=== PATIENT | female | born 1985 | race Caucasian/White ===

== ENCOUNTER 2019-12-10 14:40 | Emergency (ER) | payer BC, SELFPAY ==
--- NOTE | ~2019-12-10 | CT_ITS ---
EXAMINATION: CT lumbar spine w con DATE: 12/10/2019 19:14 INDICATION: Low back pain post recent spinal injection TECHNIQUE: Computed tomography (CT) of the lumbar spine was performed with 100 mL Omnipaque-350 intra venous contrast. Automated exposure control and iterative reconstruction technique were employed. The dose-length product was 908.37 mGy-cm. COMPARISON: Lumbar spine MR dated 08/03/2019 FINDINGS: Again seen is 3 mm retrolisthesis L4 on L5 and L5 on S1. Moderate disc height loss with vacuum phenom joseph at both levels. The more cephalad disc heights are normal. Vertebral body heights are normal. No fracture. Disc bulges at L4-L5 and L5-S1 resulting in mild central canal stenosis. Tiny foci of gas a t the posterior aspect of the right posterior S1 neural foramen and more posteriorly along the deep p araspinal musculature cephalad and caudal to the left-sided lamina of L5 and S1. Paraspinal soft tiss ues are otherwise unremarkable with no abscess, other abnormal fluid collections or abnormally enhanc ing lesions. No gas within the central canal. 2.0 cm left ovarian cyst/follicle. IMPRESSION: 1. A few tiny foci of gas along the paraspinal soft tissues at the posterior aspect of the lumbosacra l junction on both the left and right likely related to reported recent spinal injection. No gas abno rmal fluid collections or gas within the central canal. 2. Mild to moderate lower lumbar spondylosis. Reviewed, dictated and finalized at location A. NTRY WEAPONS OFFICER IMPRESSION: 1. A few tiny foci of gas along the paraspinal soft tissues at the posterior as pect of the lumbosacral junction on both the left and right likely related to r eported recent spinal injection. No gas abnormal fluid collections or gas withi n the central canal. 2. Mild to moderate lower lumbar spondylosis.
[2019-12-10 15:23] VITALS: BP 153/81; PULSE 100; RESP 18; TEMP 37; O2SAT 99
--- NOTE | 2019-12-10 15:32 | ED.BACK ---
HPI - Back Pain/Injury General Chief Complaint: Back Pain/Injury Time Seen by Provider: 12/10/19 15:13 Source: patient Mode of arrival: ambulatory Limitations: no limitations History of Present Illness HPI Narrative: This is a 34 year old female that presents to the ER for low back pain since yesterday. Reports she has history of lumbar disc disease and is receiving spinal injections. Reports she had one yesterday and since her pain has been worse. Reports the pain is radiating down her left leg. Denies fever, saddle anesthesia, or bowel/bladder incontinence. Related Data Home Medications Medication Instructions Recorded Confirmed fluoxetine 10 mg tablet 10 mg PO DAILY 10/15/19 norethindrone 1.5 mg-ethinyl 1 tablet PO DAILY 10/15/19 estradiol 30 mcg(21)/iron 75 mg(7) tablet Allergies Allergy/AdvReac Type Severity Reaction Status Date / Time No Known Allergies Allergy Verified 05/19/15 14:46 Review of Systems Review of Systems: Narrative: CONSTITUTIONAL: Denies fever MUSCULOSKELETAL: Reports back pain, joint pain, and myalgia. NEUROLOGIC: Denies numbness, or weakness. All systems reviewed & are unremarkable except as noted in HPI and below PMFSH Past Medical History Medical History (Updated 12/10/19 @ 19:56 by eMl Jurado PA-C) History of depression Family History Family History (Updated 05/30/17 @ 09:08 by DOCTOR UNKNOWN) Mother Family history of hypercholesterolemia Grandparent Family history of malignant neoplasm Social History Social History (Updated 10/15/19 @ 08:25 by Orly Adhikari) Smoking status: Current every day smoker Tobacco type: cigarettes Alcohol intake: current Substance use: never Substance use type: does not use Gender identity (if verbalized by the patient): Female Exam Narrative: Exam Narrative: GENERAL: Well-appearing, well-nourished, and in no acute distress. HEAD: Normocephalic, atraumatic. EYES: EOMI. CHEST: Clear to auscultation. No respiratory distress. No wheezes rales or rhonchi HEART: Regular rate and rhythm. No murmur heard. Normal peripheral pulses. BACK: No midline spinal tenderness, erythema or warmth EXTREMITIES: Normal range of motion. No edema. Strength equal in bilateral lower extremities (5/5). Normal patellar reflexes bilaterally SKIN: Warm, dry, no rash. NEURO: No focal deficits. Alert and oriented x3. PSYCH: Normal mood and affect Course Vital Signs Vital signs: Vital Signs Temperature 98.6 F 12/10/19 15:23 Pulse Rate 100 12/10/19 15:23 Respiratory Rate 18 12/10/19 15:23 Blood Pressure 153/81 H 12/10/19 15:23 Pulse Oximetry 99 12/10/19 15:23 Temperature 98.6 F 12/10/19 15:23 Pulse Rate 100 12/10/19 15:23 Respiratory Rate 18 12/10/19 15:23 Blood Pressure 153/81 H 12/10/19 15:23 Pulse Oximetry 99 12/10/19 15:23 MDM - Back Pain/Injury MDM Narrative Medical decision making narrative: Patient presents to the emergency department for increasing lower back pain after epidural injection for disc disease yesterday. No midline spinal tenderness. Patient is neurologically intact. She is afebrile and nontoxic-appearing. Mild leukocytosis on CBC to 13.2. Inflammatory markers are not elevated. CT abdomen pelvis with a few tiny foci of gas along the paraspinal soft tissues, consistent with recent spinal injection. No abnormal fluid collections or gas within the central canal. Also shows mild to moderate lumbar spondylosis. Patient was updated on case findings. She reports improvement with Toradol and Valium. She is to follow-up with her statuary painter. She was given warnings to return to the ER Lab Data Attestation: I reviewed the patient's lab results. Result diagrams: 12/10/19 15:56 12/10/19 15:56 Labs: Lab Results 12/10/19 12/10/19 12/10/19 Range/Units 15:56 15:56 15:56 WBC 13.2 H (4.5-10.0) K/mm3 RBC 4.87 (4.2-5.4) M/mm
[2019-12-10] MEDS: KETOROLAC 30 MG/ML VIAL (*BKC) IV PUSH (15:55)
[2019-12-10 16:04] LABS: Basophils Percent Auto 0.1 % (0.2-1.2); Hematocrit 42.7 % (37.0-47.0); Immature Granulocyte Absolute 0.05 K/mm3 (0.00-0.031); Immature Granulocyte Percent A 0.4 % (0-0.5); Lymphocytes Absolute Auto 1.25 K/mm3 (0.9-3.2); Lymphocytes Percent Auto 9.4 % (18.3-44.2); Mean Corpuscular HGB Conc 32.8 g/dl (32-36); Mean Corpuscular Hemoglobin 28.7 pg (26-34); Mean Corpuscular Volume 87.7 fl (80-100); Mean Platelet Volume 10.7 fl (7.4-10.4); Monocytes Absolute Auto 0.4 K/mm3 (0.1-0.6); Monocytes Percent Auto 2.6 % (2.6-8.5); Neutrophils Absolute Auto 11.6 K/mm3 (1.3-6.7); Neutrophils Percent Auto 87.5 % (45.5-73.1); Platelet Count Result 327 k/mm3 (150-375); Red Blood Count 4.87 M/mm3 (4.2-5.4); Red Cell Distribution Width 11.9 % (11.5-14.5); White Blood Count 13.2 K/mm3 (4.5-10.0)
[2019-12-10 16:18] LABS: Lactic Acid Reflex 1.4 mmol/L (0.7-2.1)
[2019-12-10 16:24] LABS: Blood Urea Nitrogen 18 mg/dL (7-17); CRP 1.2 mg/dL (<1.0); Calcium 10.2 mg/dL (8.4-10.2); Carbon Dioxide 23 mmol/L (22-30); Chloride 99 mmol/L (98-107); Estimated CRCL calculation 124 ml/min; Estimated Glomerular Filt Rate > 60; Glucose 130 mg/dL (65-105); Potassium 4.2 mmol/L (3.4-5.0); Sodium 139 mmol/L (137-145)
[2019-12-10 16:41] LABS: Erythrocyte Sedimentation Rate 17 mm/hr (0-20)
[2019-12-10 20:09] VITALS: BP 120/84; PULSE 81; RESP 16; TEMP 36.8; O2SAT 100
== END 2019-12-10 20:11 | disposition home or self-care (01) ==
PROVIDERS: Physician Assistant; Emergency Provider Emergency Medicine; PCP Family Medicine
DX: M47.26 Other spondylosis with radiculopathy, lumbar region (principal); F17.210 Nicotine dependence, cigarettes, uncomplicated; F32.9 Major depressive disorder, single episode, unspecified
CPT/HCPCS: 36415; 72132; 80048; 81025; 83605; 85025; 85652; 86140; 96374; 96375; 99284; J1885; J3360; Q9967

== ENCOUNTER 2020-11-16 10:01 | Outpatient (CLI) | payer OTHER, SELFPAY ==
--- NOTE | ~2020-11-16 | XR_ITS ---
EXAMINATION:XR_[id number]_CR DATE: 11/16/2020 10:19 INDICATION: Neck pain TECHNIQUE: AP, lateral, and odontoid views of the cervical spine are provided. COMPARISON: None FINDINGS: Alignment is normal. The odontoid is intact. No fracture is identified. Vertebral body heig hts and disk spaces are normal. Prevertebral soft tissues are normal. IMPRESSION: 1. Unremarkable cervical spine. Reviewed, dictated and finalized at location A. TRICAL ENGINEER
== END 2020-11-16 10:02 | disposition home or self-care (01) ==
LOC: ANHIMG 10:08
PROVIDERS: PCP Family Medicine; Visit Provider Physician Assistant
DX: M54.2 Cervicalgia (principal)
CPT/HCPCS: 72040

== ENCOUNTER 2021-07-19 08:27 | Outpatient (CLI) | payer BC, SELFPAY ==
--- NOTE | ~2021-07-19 | MR_ITS ---
EXAMINATION: MR lumbar spine wo con EXAM DATE: 07/19/2021 09:41 INDICATION: Radiculopathy, lumbar region, TECHNIQUE: Multi-sequential, multiplanar MR images of the lumbar spine were obtained without contrast . Sagittal T1, T2, T2 fat saturation images. Axial T2 weighted images. Comparison is made to prior examination from 08/03/2019. FINDINGS: There is moderate loss of the L4-5 and L5-S1 disc height. There is 2-3 mm retrolisthesis L4 on L5 and L5 on S1. The conus medullaris terminates at the L1 level and has normal signal intensity and morphology. There are no suspicious marrow signal abnormalities. Paraspinal soft tissue is unrem arkable. Level by level evaluation: T12-L1: Disc does not extend beyond the endplate margin. Facet arthropathy: Mild to moderate. Neural foraminal stenosis: No stenosis. Central canal stenosis: No stenosis. L1-L2: Disc does not extend beyond the endplate margin. Facet arthropathy: Moderate. Neural foraminal stenosis: No stenosis. Central canal stenosis: No stenosis. L2-L3: Disc does not extend beyond the endplate margin. Facet arthropathy: Moderate. Neural foraminal stenosis: No stenosis. Central canal stenosis: No stenosis. L3-L4: There is a mild diffuse disc bulge. Facet arthropathy: Moderate. Neural foraminal stenosis: Mild left. Central canal stenosis: Mild. L4-L5: There is a mild to moderate diffuse disc bulge. Facet arthropathy: Mild to moderate. Neural foraminal stenosis: Mild to moderate bilateral. Central canal stenosis: Mild. L5-S1: There is a mild to moderate diffuse disc bulge. Facet arthropathy: Mild to moderate. Neural foraminal stenosis: Moderate right, mild to moderate left. Central canal stenosis: Mild. Difficult to appreciate any significant interval change compared to prior study. IMPRESSION: 1. Overall mild to moderate lumbar spondylosis unchanged. Reviewed, dictated and finalized at location G.
--- NOTE | ~2021-07-19 | MR_ITS ---
EXAMINATION: MR thoracic spine wo con EXAM DATE: 07/19/2021 09:40 INDICATION: Radiculopathy, lumbar region, Pain in thoracic spine radiculopathy. TECHNIQUE: Multi-sequential, multiplanar MR images of the thoracic spine were obtained without contra st. Sagittal T1, T2, T2 fat saturation, axial T2 weighted images reviewed. There is no prior study for comparison. FINDINGS: There is mild mid thoracic disc disease. No central canal or neural foraminal stenosis. The vertebral bodies are aligned in the AP dimension. There are no suspicious marrow signal abnormalitie s. Paraspinal soft tissue is unremarkable. Mild multilevel thoracic facet arthropathy. IMPRESSION: Mild thoracic spondylosis without stenosis. Reviewed, dictated and finalized at location G.
== END 2021-07-19 08:28 ==
PROVIDERS: PCP Family Medicine; Visit Provider Nurse Practitioner Adult Health
DX: M47.26 Other spondylosis with radiculopathy, lumbar region (principal); M47.894 Other spondylosis, thoracic region
CPT/HCPCS: 72146; 72148

== ENCOUNTER 2021-09-30 08:32 | Emergency (ER) | payer BC, SELFPAY ==
--- NOTE | ~2021-09-30 | XR_ITS ---
EXAMINATION: XR hand LT min 3V INDICATION: Left first finger pain TECHNIQUE: Three views of the left hand are obtained. COMPARISON: None available FINDINGS: There is no fracture, dislocation, or subluxation. The bones, soft tissues, and joint space s are normal. IMPRESSION: 1. No acute osseous abnormality. Reviewed, dictated and finalized at location A. CAL AUDITOR
[2021-09-30 08:47] VITALS: BP 147/81; PULSE 78; RESP 16; TEMP 36.7; O2SAT 98
--- NOTE | 2021-09-30 08:56 | ED.UPPEXIN ---
HPI - Extremity Injury (Upper) General Chief Complaint: Extremity Injury, Upper Stated Complaint: left thumb pain Time Seen by Provider: 09/30/21 08:54 Source: patient Mode of arrival: ambulatory Limitations: no limitations History of Present Illness HPI narrative: Patient have slight soreness at the base of left thumb over the last 24 hours, woke up this morning with more pain. 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 Patient denies any fever, chills, nausea, vomiting, history of similar symptoms. Related Data Home Medications Medication Instructions Recorded Confirmed norethindrone 1.5 mg-ethinyl 1 tablet PO DAILY 10/15/19 08/31/21 estradiol 30 mcg(21)/iron 75 mg(7) tablet Allergies Allergy/AdvReac Type Severity Reaction Status Date / Time No Known Allergies Allergy Verified 09/30/21 08:50 Review of Systems Review of Systems: CONSTITUTIONAL: Denies fever, chills, or sweats. EYES: Denies visual changes, redness, or discharge. ENT: Denies rhinorrhea, congestion, sore throat, or otalgia. CARDIOVASCULAR: Denies chest pain, palpitations, or edema. RESPIRATORY: Denies cough or dyspnea. GASTROINTESTINAL: Denies abdominal pain, nausea, vomiting, or diarrhea. GENITOURINARY: Denies dysuria or hematuria. SKIN: Denies rash or itching. MUSCULOSKELETAL: Denies back pain, joint pain, or myalgia. NEUROLOGIC: Denies headache, numbness, or weakness. PSYCHIATRIC: Denies anxiety or depression. PMFSH Past Medical History Medical History History of depression Low back pain Lumbar spondylosis Lupus Spasm of back muscles Tobacco use Family History Family History Mother Family history of hypercholesterolemia Grandparent Family history of malignant neoplasm Social History Social History Social History: Years smoked: 14 Smoking status: Current every day smoker Tobacco type: cigarettes Second hand tobacco smoke exposure: Yes Alcohol intake: never Alcohol use details: occasionally Substance use: never Substance use type: does not use Gender identity (if verbalized by the patient): Female Sexual Orientation (if Verbalized by the Patient): Straight or Heterosexual Exam Narrative: General appearance: Well-developed, well-nourished Skin: Normal color Head: Normocephalic, nontraumatic Eyes: Clear conjunctiva Chest and respiratory: Airway patent, no respiratory distress, no accessory muscle use Heart: Regular rate/rhythm Vascular: Normal peripheral pulses, normal capillary refill. Musculoskeletal: Normal range of motion, nontender back, left hand exam showed slight ecchymosis dorsally, slight swelling at the base of the left thumb, with slight limited range of motion Course Course Emergency Course: Stable Vital Signs Vital signs: Vital Signs Temperature 36.7 C 09/30/21 08:47 Pulse Rate 78 09/30/21 08:47 Respiratory Rate 16 09/30/21 08:47 Blood Pressure 147/81 H 09/30/21 08:47 Pulse Oximetry 98 09/30/21 08:47 Temperature 36.7 C 09/30/21 08:47 Pulse Rate 78 09/30/21 08:47 Respiratory Rate 16 09/30/21 08:47 Blood Pressure 147/81 H 09/30/21 08:47 Pulse Oximetry 98 09/30/21 08:47 MDM - Extremity Injury (Upper) MDM Narrative Medical decision making narrative: Physical exam showed that the patient have slight bruises at the left hand indicating high likely nonspecific trauma at work 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 X-ray left hand ordered. Strain, sprain, slight contusion is my concern. Patient declined to take off work today
[2021-09-30] MEDS: IBUPROFEN 400 MG TABLET 800 MG PO (09:09)
== END 2021-09-30 10:34 | disposition home or self-care (01) ==
LOC: ANHED 09:47
PROVIDERS: Emergency Provider Emergency Medicine; PCP Family Medicine
DX: M79.645 Pain in left finger(s) (principal); F32.A Depression, unspecified; F17.210 Nicotine dependence, cigarettes, uncomplicated
CPT/HCPCS: 73130; 99283; A9270

== ENCOUNTER → 2021-11-14 08:46 | Outpatient (CLI) | payer BC, SELFPAY ==
--- NOTE | ~2021-11-14 | XR_ITS ---
EXAMINATION: XR hand RT 2V DATE: 11/14/2021 09:02 INDICATION: Polyarthralgia. TECHNIQUE: 2 views of right hand were obtained. COMPARISON: None. FINDINGS: Bone alignment is normal. No fracture. There is mild osteoarthritis of fifth proximal inter phalangeal joint. IMPRESSION: 1. 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 Reviewed, dictated and finalized at location B. UNT PROCESSOR
--- NOTE | ~2021-11-14 | XR_ITS ---
EXAMINATION: XR foot LT 2V DATE: 11/14/2021 09:02 INDICATION: Polyarthralgia. TECHNIQUE: 2 views of left foot were obtained. COMPARISON: None. FINDINGS: Bone alignment is normal. No fracture. Joint spaces are well maintained. IMPRESSION: 1. No arthritis. Reviewed, dictated and finalized at location B. STRATION COORDINATOR IMPRESSION: 1. No arthritis.
--- NOTE | ~2021-11-14 | XR_ITS ---
EXAMINATION: XR foot RT 2V DATE: 11/14/2021 09:02 INDICATION: Polyarthralgia. TECHNIQUE: 2 views of right foot were obtained. COMPARISON: None. FINDINGS: Bone alignment is normal. No fracture. There is mild osteoarthritis of first metatarsophala ngeal joint. IMPRESSION: 1. Mild osteoarthritis of first metatarsophalangeal joint. Reviewed, dictated and finalized at location B. ICULUM DEVELOPER
--- NOTE | ~2021-11-14 | XR_ITS ---
EXAMINATION: XR hand LT 2V DATE: 11/14/2021 09:03 INDICATION: Polyarthralgia. TECHNIQUE: 2 views of left hand were obtained. COMPARISON: Left hand radiographs 09/30/2021 FINDINGS: Bone alignment is normal. No fracture. There is mild osteoarthritis of fifth proximal inter phalangeal joint. IMPRESSION: 1. 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 Reviewed, dictated and finalized at location B. ANICAL DESIGN ENGINEER PRODUCTS
== END ==
PROVIDERS: PCP Family Medicine; Visit Provider Physician Assistant
DX: M15.9 Polyosteoarthritis, unspecified (principal)
CPT/HCPCS: 73120; 73620

== ENCOUNTER 2023-04-07 15:44 | Inpatient (IN) | payer BC, SELFPAY ==
[2023-04-07] VITALS (55 sets, daily range): BP systolic 106–171; BP diastolic 56–147; PULSE 67–194; TEMP 36.2–36.6; O2SAT 99–100; BMI 36.6
[2023-04-07 17:01] LABS: Basophils Percent Auto 0.2 % (0.2-1.2); Eosinophils Percent Auto 0.2 % (0-4.4); Hemoglobin 10.5 g/dL (12.0-15.0); Immature Granulocyte Absolute 0.01 K/mm3 (0.00-0.031); Immature Granulocyte Percent A 0.2 % (0-0.5); Lymphocytes Absolute Auto 1.26 K/mm3 (0.9-3.2); Lymphocytes Percent Auto 31.4 % (18.3-44.2); Mean Corpuscular HGB Conc 32.8 g/dl (32-36); Mean Corpuscular Hemoglobin 27.8 pg (26-34); Mean Corpuscular Volume 84.7 fl (80-100); Mean Platelet Volume 11.9 fl (7.4-10.4); Monocytes Absolute Auto 0.3 K/mm3 (0.1-0.6); Monocytes Percent Auto 8.2 % (2.6-8.5); Neutrophils Absolute Auto 2.4 K/mm3 (1.3-6.7); Neutrophils Percent Auto 59.8 % (45.5-73.1); Platelet Count Result 237 k/mm3 (150-375); Red Blood Count 3.78 M/mm3 (4.2-5.4); Red Cell Distribution Width 14.2 % (11.5-14.5)
[2023-04-07] MEDS: DINOPROSTONE 10 MG VAG INSERT VAGINAL (17:09)
[2023-04-07 17:17] LABS: Alanine Aminotransferase 21 U/L (6-35); Albumin Level 3.5 g/dL (3.5-5.1); Alkaline Phosphatase 154 U/L (38-126); Anion Gap 5 mmol/L (8-16); Aspartate Amino Transferase 26 U/L (14-36); Bilirubin,Total 0.3 mg/dL (0.2-1.3); Blood Urea Nitrogen 13 mg/dL (7-17); Calcium 8.6 mg/dL (8.4-10.2); Carbon Dioxide 23 mmol/L (22-30); Chloride 106 mmol/L (98-107); Estimated Glomerular Filt Rate > 60; Glucose 86 mg/dL (65-110); Potassium 4.2 mmol/L (3.4-5.0); Sodium 134 mmol/L (137-145); Uric Acid 4.9 mg/dL (2.5-7.5)
--- NOTE | 2023-04-07 20:55 | WPDANESEPP ---
Anes - Eval Pre Procedure Procedure: labor epidural Date/Time: 04/07/23 20:55 Pre Op Diagnosis: IOL Patient Data Age: 37 Gender: F Height: 1.65 m Weight: 100 kg Last Vital Signs Temp 36.2 C L 04/07/23 19:00 Pulse 71 04/07/23 20:46 BP 162/83 H 04/07/23 20:46 O2 Del Method Room Air 04/07/23 16:49 Allergies Allergy/AdvReac Type Severity Reaction Status Date / Time No Known Allergies Allergy Verified 04/07/23 09:24 Home Medications Medication Instructions Recorded Confirmed Type prenat.vits,ash,fil-wvdp-fqsqe 1 tablet PO DAILY 09/23/22 04/07/23 History aspirin 81 mg tablet,delayed 81 mg PO DAILY 10/22/22 04/07/23 History release (Adult Low Dose Aspirin) ferrous sulfate 325 mg (65 mg 325 mg PO DAILY 02/11/23 04/07/23 History iron) tablet Laboratory Tests 04/07/23 16:52 WBC 4.0 L K/mm3 (4.5-10.0) RBC 3.78 L M/mm3 (4.2-5.4) Hgb 10.5 L D g/dL (12.0-15.0) Hct 32.0 L % (37.0-47.0) MCV 84.7 fl (80-100) MCH 27.8 pg (26-34) MCHC 32.8 g/dl (32-36) RDW 14.2 % (11.5-14.5) Plt Count 237 k/mm3 (150-375) MPV 11.9 H fl (7.4-10.4) Immature Gran % (Auto) 0.2 % (0-0.5) Neut % (Auto) 59.8 % (45.5-73.1) Lymph % (Auto) 31.4 % (18.3-44.2) [place] % (Auto) 8.2 % (2.6-8.5) Eos % (Auto) 0.2 % (0-4.4) Baso % (Auto) 0.2 % (0.2-1.2) Lymph # (Auto) 1.26 K/mm3 (0.9-3.2) [place] # (Auto) 0.3 K/mm3 (0.1-0.6) Eos # (Auto) 0.0 K/mm3 (0-0.3) Baso # (Auto) 0.0 K/mm3 (0.0-0.1) Abs Immat Gran (auto) 0.01 K/mm3 (0.00-0.031) Absolute Neuts (auto) 2.4 K/mm3 (1.3-6.7) Absolute Nucleated RBC 0.0 K/mm3 (0.0-0.012) Nucleated RBC % 0.0 % (0.0-0.2) Sodium 134 L mmol/L (137-145) Potassium 4.2 mmol/L (3.4-5.0) Chloride 106 mmol/L (98-107) Carbon Dioxide 23 mmol/L (22-30) Anion Gap 5 L mmol/L (8-16) BUN 13 D mg/dL (7-17) Creatinine 0.60 L mg/dL (0.7-1.0) Estim Creat Clear Calc Not Reportable Estimated GFR > 60 (59 - ) Glucose 86 mg/dL (65-110) Uric Acid 4.9 mg/dL (2.5-7.5) Calcium 8.6 mg/dL (8.4-10.2) Total Bilirubin 0.3 mg/dL (0.2-1.3) AST 26 U/L (14-36) ALT 21 U/L (6-35) Alkaline Phosphatase 154 H U/L (38-126) Total Protein 7.0 g/dL (6.3-8.2) Albumin 3.5 g/dL (3.5-5.1) RPR Pending Blood Type A Positive Antibody Screen Negative Patient hx anesthesia problems: none Family hx anesthesia problems: none Results Review: All pre-operative results and documents have been reviewed as part of the pre-operative evaluation. [facility] Past Medical History Medical History History of depression Low back pain Lumbar spondylosis Lupus Spasm of back muscles Suppression of menses Tobacco use Family History Family History Mother Family history of hypercholesterolemia Grandparent Family history of malignant neoplasm Social History Social History Social History: Years smoked: 14 Smoking status: Former smoker Tobacco type: cigarettes Second hand tobacco smoke exposure: Yes Additional smoking assessment comments: Pt smokes 3 or 4 a day. Alcohol intake: never Substance use: never Substance use type: does not use Lack of Transportation: No Lack of Food: Never True Current Housing: I Have Housing Concerned About Future Housing: No Difficulty Paying Gas/Electric Bills: No Difficulty Paying for Meds: No Currently Unemployed: No Education: Bachelor's Degree Difficulty w/ Childcare or Family Care: No Living arrangements: with family Occupation/Education: occupation Gender identity (if verbalized by the patient): Female Sexual Orientation (if Verbalized by the Patient): Straight or Heterosexual Spiritua
[2023-04-07] MEDS: LACTATED RINGERS 1,000 ML 125 ML IV CONT (21:56)
[2023-04-08] VITALS (104 sets, daily range): BP systolic 106–155; BP diastolic 45–121; PULSE 67–136; RESP 16–18; TEMP 36.6–37.2; O2SAT 96–100
[2023-04-08] MEDS: LACTATED RINGERS 1,000 ML 125 ML IV CONT (01:30)
--- NOTE | 2023-04-08 03:41 | WPDHPUPDATE1 ---
History and Physical Update Update Date/Time: 04/08/23 03:41 History and Physical has been reviewed, including an updated exam of the patient. There are NO changes in the patient's condition. Risks, benefits, and alternatives have been discussed and questions answered. Patient agrees to proceed with procedure.
--- NOTE | 2023-04-08 03:41 | WPDOBADMIT ---
Obstetrics - Admit Note Admission Note: record reviewed. No pertinent additions to the history and/or any subsequent changes in the physical findings that are not consistent with the expected course of the were found. Additions to the history and/or subsequent changes in the physical findings follow. None.
--- NOTE | 2023-04-08 03:41 | PM.OBPRVD ---
OB - Delivery Note Procedure Intrapartal Events: Other ( Meconium-stained fluid) Induction method: Per Cervidil Protocol Delivery augmentation: Pitocin Delivery monitor: External FHT and External Uterine Route of delivery: Episiotomy description: None Laceration Description: None Specimen: Yes Quantitative Blood Loss (ml): 200 Anesthesia type: Epidural Disposition: Floor Complications: None Narrative: patient prepped in usual manner for this procedure. Maternal expulsive efforts delivered vertex over intact perineum. Further effort deliver the rest of the baby without difficulty. Cord clamped and cut and baby was placed on maternal abdomen. Placenta delivered spontaneously the uterus was well contracted. Cervix vagina vulva were inspected with no significant lacerations or tears. Cervix was well contracted with minimal bleeding at this point the procedure was considered terminated. Baby Weeks of gestation at delivery: 39 Infant gender: Female presentation: vertex Placenta delivery description: Spontaneous Cord Vessel Description: 3 Vessels [facility] Delivery Billing Delivery Delivery: Delivery Charge
[2023-04-08] MEDS: OXYTOCIN 30 UNITS/NS 500 ML 30 UNITS/500 ML BAG 125 UNITS IV CONT (04:00)
[2023-04-08] MEDS: OXYTOCIN 30 UNITS/NS 500 ML 30 UNITS/500 ML BAG 999 UNITS IV CONT (04:00)
--- NOTE | 2023-04-08 05:50 | OBPPTRN ---
Patient transferred to post room #285 via wheelchair. Support person present. Oriented to unit, room, information board, rooming in, admission packet and security measures. Patient verbalizes understanding.
[2023-04-08] MEDS: BENZOCAINE 20% AER SPR (*SP) 56 GM CAN 1 SPRAY TOPICAL (05:59)
[2023-04-08] MEDS: WITCH HAZEL 40 PADS 1 PAD TOPICAL (05:59)
[2023-04-08] MEDS: IBUPROFEN 600 MG TABLET PO ×3 (06:53→22:10)
--- NOTE | 2023-04-08 08:37 | P.DS_ITS ---
DS: Admitting Diagnosis Discharge Date 04/09/2023 Admitting Diagnosis DS: Discharge Diagnosis Discharge Diagnosis (1) , delivered: Code(s): O80 - Encounter for full-term uncomplicated delivery Status: Acute OB - DS: Summary OB Procedures : None OB Procedures Intrapartum: Spontaneous Vag Delivery OB Procedures: : None Time Spent with Patient Time attestation: Total time spent providing and/or coordinating discharge services: DS: Data Data Completed and Pending Pending studies at discharge: Pending at discharge 04/08/23 03:31 Surgical [PTH] Routine Labs on day of discharge: Labs from last 24 hours 04/07/23 16:52 WBC 4.0 L RBC 3.78 L Hgb 10.5 L D Hct 32.0 L MCV 84.7 MCH 27.8 MCHC 32.8 RDW 14.2 Plt Count 237 MPV 11.9 H Immature Gran % (Auto) 0.2 Neut % (Auto) 59.8 Lymph % (Auto) 31.4 [place] % (Auto) 8.2 Eos % (Auto) 0.2 Baso % (Auto) 0.2 Lymph # (Auto) 1.26 [place] # (Auto) 0.3 Eos # (Auto) 0.0 Baso # (Auto) 0.0 Abs Immat Gran (auto) 0.01 Absolute Neuts (auto) 2.4 Absolute Nucleated RBC 0.0 Nucleated RBC % 0.0 Sodium 134 L Potassium 4.2 Chloride 106 Carbon Dioxide 23 Anion Gap 5 L BUN 13 D Creatinine 0.60 L Estim Creat Clear Calc Not Reportable Estimated GFR > 60 Glucose 86 Uric Acid 4.9 Calcium 8.6 Total Bilirubin 0.3 AST 26 ALT 21 Alkaline Phosphatase 154 H Total Protein 7.0 Albumin 3.5 RPR Pending Blood Type A Positive Antibody Screen Negative Discharge Plan Discharge Discharging Clinician: Alexys Brown Patient Disposition: Home, Self-Care Activity: as tolerated Diet: as tolerated Patient Instructions: Antibiotic Form Stand Alone Forms: General Discharge Information Follow-up/Referrals: Alexys Brown MD [Physician] - 3 Weeks Discharge Medications: New ibuprofen 600 mg Tablet 600 mg PO Q6H PRN (Reason: Cramping) Qty: 30 0RF Continued prenat.vits,ash,lzd-ktlz-vjqba Tablet 1 tablet PO DAILY ferrous sulfate 325 mg (65 mg iron) tablet 325 mg PO DAILY Discontinued aspirin [Adult Low Dose Aspirin] 81 mg tablet,delayed release (DR/EC) 81 mg PO DAILY Date of admission: 04/07/23 15:44 Primary Care Provider: Brenda Montiel Admitting Provider: Alexys Brown Attending physician on admission: Alexys Brown Condition: Stable
[2023-04-08] MEDS: MULTIVIT/MIN/PREN/FOL AC/IRON TABLET 1 TAB PO (09:22)
[2023-04-08] MEDS: DOCUSATE SODIUM 100 MG CAPSULE PO ×2 (09:22→16:25)
[2023-04-08 11:28] LABS: Rapid Plasma Reagin Non-Reactive (NonReactive)
[2023-04-08] MEDS: ACETAMINOPHEN 325 MG TABLET 650 MG PO ×2 (11:59→19:44)
--- NOTE | 2023-04-08 16:06 | PC.NURSE ---
[id number] Introductions were made, then consulted with patient to assess needs related to . Mother verbalizes she is able to independently latch infant with appropriate positioning/alignment. She denies any nipple discomfort and is responsively . Infant is demonstrating early feeding cues and mother was encouraged to breastfeed. Mother declines at this time related to company coming to visit and any additional assistance/education at this time. Mother is encouraged to call for assistance if her infant doesn?t latch or there is discomfort with latching. Mother voiced understanding of information shared and the mom reminded of the mom/baby guide for an additional resource. Reported to the primary RN.
[2023-04-09 00:40] VITALS: BP 140/79; PULSE 56; RESP 18; TEMP 36.5; O2SAT 98
[2023-04-09] MEDS: ACETAMINOPHEN 325 MG TABLET 650 MG PO ×3 (03:28→16:38)
[2023-04-09] MEDS: IBUPROFEN 600 MG TABLET PO ×3 (04:15→16:38)
[2023-04-09 04:25] LABS: Hematocrit 30.7 % (37.0-47.0); Hemoglobin 10.1 g/dL (12.0-15.0)
[2023-04-09 04:42] VITALS: BP 128/84; PULSE 63; RESP 16; TEMP 36.6; O2SAT 98
[2023-04-09 08:20] VITALS: BP 143/88; PULSE 64; RESP 16; TEMP 36.4; O2SAT 100
[2023-04-09 10:00] VITALS: PULSE 66; RESP 18; O2SAT 99
[2023-04-09] MEDS: DOCUSATE SODIUM 100 MG CAPSULE PO (10:06)
[2023-04-09] MEDS: MULTIVIT/MIN/PREN/FOL AC/IRON TABLET 1 TAB PO (10:06)
--- NOTE | 2023-04-09 10:06 | PC.NURSE ---
PT introductions made and plan of care discussed per post , pain management, breast feeding, daily care activities. PT and spouse both recipients of such care and no barriers to learning identified at this time. PT received such instructions per one to one discussion, mom baby care guide and demonstrations this shift. PT verbalized understanding of such care.
--- NOTE | 2023-04-09 13:11 | WPDANLDPN2 ---
Anes-Prog Note L&D Date/Time: 04/09/23 13:11 Comfortable throughout: labor and delivery Neuraxial method: epidural Epidural/Spinal procedure site: tender Neuro status: Neuro function grossly intact. Cardiovascular status: normal Respiratory status: normal Airway patency: baseline Mental status: baseline Post-Op hydration status: normal Vital Signs: Last Vital Signs Temp 36.4 C 04/09/23 08:20 Pulse 64 04/09/23 08:20 Resp 16 04/09/23 08:20 BP 143/88 H 04/09/23 08:20 Pulse Ox 100 04/09/23 08:20 O2 Del Method Room Air 04/08/23 11:50 Pain score (VAS): 3/10 Post-procedural complaints: none Patient feedback: Patient satisfied with anesthetic care.
[2023-04-09 16:15] VITALS: BP 152/98; PULSE 66; RESP 18; TEMP 36.7; O2SAT 99
--- NOTE | 2023-04-09 18:00 | PC.NURSE ---
PT received discharge instructions per protocol and verbalized understanding of such care. Patient was given the opportunity to view the discharge video Mother & Baby Care, The First Two Weeks and to ask questions. Patient declined viewing the video and has been given the mother/baby guide for home reference.
--- NOTE | 2023-04-09 18:20 | PC.NURSE ---
PT discharged to home ambulatory accompanied by spouse and and walked to waiting car. follow up appts confirmed
[2023-04-11 08:19] VITALS: BP 150/90; PULSE 84; RESP 18; TEMP 36.8; O2SAT 100
== END 2023-04-09 18:20 | disposition home or self-care (01) | DRG 807 ==
LOC: ANHLDR 15:53 → ANHOB2 04-08 05:57
PROVIDERS: Admitting Provider Obstetrics & Gynecology; PCP Family Medicine; Visit Provider Obstetrics & Gynecology
DX: O77.0 Labor and delivery complicated by meconium in amniotic fluid (principal); Z37.0 Single live birth; Z3A.39 39 weeks gestation of pregnancy
CPT/HCPCS: 36415; 80053; 84550; 85014; 85018; 85025; 86592; 86850; 86900; 86901; 88307; A9270; J2590; J2795; J7120

== ENCOUNTER 2024-01-08 13:53 | Outpatient (CLI) | payer BC, SELFPAY ==
--- NOTE | ~2024-01-08 | MR_ITS ---
EXAMINATION: MR lumbar spine wo/w con DATE: 01/08/2024 14:57 INDICATION: Back pain. TECHNIQUE: Magnetic resonance imaging (MRI) of the lumbar spine was performed without and with 17 mL MultiHance intravenous contrast. COMPARISON: Lumbar spine MRI 07/19/2021 FINDINGS: Bone alignment is normal. Vertebral body heights are normal. There is moderately decreased disc height at L4-L5 and severely decreased disc height at L5-S1. The distal spinal cord signal inten sity is normal. The conus medullaris is at L1. The following disc levels are specifically discussed: L1-L2: The disc does not extend beyond the endplate margin. There is moderate bilateral facet joint o steoarthritis. There is no neural foraminal stenosis. There is no central canal stenosis. L2-L3: The disc does not extend beyond the endplate margin. There is severe bilateral facet joint ost eoarthritis. There is no neural foraminal stenosis. There is no central canal stenosis. L3-L4: The disc is bulging. There is severe right and moderate left facet joint osteoarthritis. There is mild bilateral neural foraminal stenosis. There is mild central canal stenosis. L4-L5: The disc is bulging with superimposed central extrusion. There is mild right and moderate left facet joint osteoarthritis. There is mild bilateral neural foraminal stenosis. There is mild central canal stenosis. L5-S1: The disc is bulging and has an annular fissure. There is moderate bilateral facet joint osteoa rthritis. There is mild bilateral neural foraminal stenosis. There is mild central canal stenosis. IMPRESSION: 1. Severe lower lumbar spondylosis, stable from 07/19/2021. Reviewed, dictated and finalized at location E. [employer]
== END 2024-01-08 13:54 ==
PROVIDERS: PCP Family Medicine; Visit Provider Internal Medicine Rheumatology
DX: M25.551 Pain in right hip (principal); M25.552 Pain in left hip; M47.896 Other spondylosis, lumbar region
CPT/HCPCS: 72158; A9577

== ENCOUNTER 2024-01-29 09:43 | Outpatient (CLI) | payer BC, SELFPAY ==
--- NOTE | ~2024-01-29 | MR_ITS ---
EXAMINATION: MR sacrkash wo/w con DATE: 01/29/2024 11:18 INDICATION: Bilateral hip pain. Back pain. TECHNIQUE: Magnetic resonance imaging (MRI) of the sacrum was performed without and with 17 mL MultiH ance intravenous contrast. COMPARISON: CT abdomen and pelvis 01/18/2019 FINDINGS: Bone alignment is normal. No fracture. There is severe lumbar spondylosis. There is moderate osteoart hritis of the sacrococcygeal joints. The bladder is distended. IMPRESSION: 1. Moderate osteoarthritis of the sacrococcygeal joints. No evidence of inflammatory arthropathy. Reviewed, dictated and finalized at location A. IMPRESSION: 1. Moderate osteoarthritis of the sacrococcygeal joints. No evidence of inflamm atory arthropathy.
== END 2024-01-29 09:44 ==
LOC: GOSHIMG 09:47
PROVIDERS: PCP Family Medicine; Visit Provider Internal Medicine Rheumatology
DX: M53.3 Sacrococcygeal disorders, not elsewhere classified (principal)
CPT/HCPCS: 72197; A9577